=== PATIENT | male | born 1955 | race Caucasian/White ===

== ENCOUNTER 2016-09-20 05:35 | Day surgery (SDC) | payer BC ==
[~2016-09-20 05:35] MED LIST: ALBUTEROL0.63 MG/1; AMBIEN5 M1 PO; FLOMAX0.4 M1 PO; FLONASE ALLERG9.9 ML; OMEPRAZOLE10 M2 PO; PROAIR HFA8.5 GM INH; PROSCAR5 M1 PO; SYMBICORT 160-1 PUFF INH
[2016-09-20 06:55] LABS: BASO % 0.4 % (0-2); EOS % 0.7 % (0-7); EOSINOPHIL ABSOLUTE COUNT 0.1 tho/cmm (0.0-0.7); HCT-HEMATOCRIT 41.4 % (36.0-53.5); HGB-HEMOGLOBIN 14.3 gm/dl (13.5-17.0); IMMATURE GRANULOCYTES ABSOLUTE 0.01 tho/cmm (0-0.03); IMMATURE GRANULOCYTES PERCENT 0.1 % (0-0.3); LYMPH % 38.4 % (20-45); LYMPH ABSOLUTE COUNT 3.1 tho/cmm (0.8-4.5); MCH (MEAN CORPUSCULAR HGB) 30.5 pg (28.0-32.0); MCHC MEAN CORPUSCULAR HGB CONC 34.5 % (32.0-36.0); MCV (MEAN CELL VOLUME) 88.3 fl (82.0-96.0); MEAN PLATELET VOLUME 9.5 cmc (9.4-12.4); MONO % 8.2 % (0-12); MONOCYTE ABSOLUTE COUNT 0.7 tho/cmm (0.0-1.2); NEUTROPHIL ABSOLUTE COUNT 4.2 tho/cmm (1.6-8.0); NEUTROPHIL-AUTOMATED 4.2 tho/cmm (1.6-8.0); NEUTROPHILS % 52.2 % (40-80); PLATELET COUNT 272 tho/cmm (150-450); RED BLOOD COUNT 4.69 mil/cmm (4.40-5.70); RED CELL DISTRIBUTION WIDTH 12.6 % (12.4-16.4)
== END 2016-09-20 11:52 ==
LOC: SRG 05:35 → SHSB 05:37 → ORW 07:15 → PACU 08:40 → SHSB 09:35
PROVIDERS: Anesthesiology
PROC: 0YU50JZ Supplement Right Inguinal Region with Synthetic Substitute, Open Approach (ICD-10-PCS; principal; 2016-09-20)
DX: K40.90 Unilateral inguinal hernia, without obstruction or gangrene, not specified as recurrent (principal); D17.6 Benign lipomatous neoplasm of spermatic cord; Z98.890 Other specified postprocedural states; Z79.899 Other long term (current) drug therapy
CPT/HCPCS: C1781; J0690; J3010